=== PATIENT | female | born 1960 | race Caucasian/White ===

== ENCOUNTER 2016-12-27 14:46 | Outpatient (CLI) | payer OTHER ==
--- NOTE | 2016-12-27 17:57 | MMO ---
BILATERAL SCREENING MAMMOGRAMS: Comparison: Reference made to prior mammograms dating back to April 2012. This study is interpreted with the assistance of computer aided detection. FINDINGS: There are scattered fibroglandular elements bilaterally. No evidence of a new dominant mass, suspici ous clustering calcification or distortion. IMPRESSION: BIRADS category 1 - negative. Annual screening mammography recommended. POS: [place]
== END 2016-12-27 14:47 | disposition home or self-care (01) ==
LOC: MAMMO 14:46
DX: Z12.31 Encounter for screening mammogram for malignant neoplasm of breast (principal)
CPT/HCPCS: 77067; G0202

== ENCOUNTER 2018-04-14 08:12 | Outpatient (CLI) | payer BC | END 2018-04-14 08:13 | disposition home or self-care (01) | LOC: BICMAMMO 08:12 | PROVIDERS: ATTEND Family Medicine | DX: Z12.31 Encounter for screening mammogram for malignant neoplasm of breast (principal) | CPT/HCPCS: 77063; 77067 ==

== ENCOUNTER 2020-03-03 14:32 | Outpatient (CLI) | payer BC ==
--- NOTE | 2020-03-03 16:28 | MMO ---
Bilateral MAMMO Bilat Screen [facility]. CLINICAL HISTORY: Patient is 59 years old and is seen for screening. The patient has no family history of breast cancer. The patient has no personal history of cancer. VIEWS: The views performed were: bilateral craniocaudal with tomosynthesis and bilateral mediolateral oblique with tomosynthesis. FILMS COMPARED: The present examination has been compared to prior imaging studies performed at [facility] on 04/14/2018, and at [facility] on 07/20/2013, 07/16/2015 and 12/27/2016. This study has been interpreted with the assistance of computer-aided detection. MAMMOGRAM FINDINGS: There are scattered fibroglandular densities. There are no suspicious masses, suspicious calcifications, or new areas of architectural distortion. IMPRESSION: THERE IS NO MAMMOGRAPHIC EVIDENCE OF MALIGNANCY. A ROUTINE FOLLOW-UP MAMMOGRAM IN 1 YEAR IS RECOMMENDED. THE RESULTS OF THIS EXAM WERE SENT TO THE PATIENT. ACR BI-RADS Category 1 - Negative MAMMOGRAPHY NOTE: 1. A negative mammogram report should not delay a biopsy if a dominant of clinically suspicious mass is present. 2. Approximately 10% to 15% of breast cancers are not detected by mammography. 3. Adenosis and dense breasts may obscure an underlying neoplasm. Reported by: VALERIE LU MD Electonically Signed: [id number]
--- NOTE | 2020-03-04 07:28 | BD ---
EXAM: Bone densitometry using DEXA HISTORY: 59 yo female. Screening for postmenopausal osteoporosis FINDINGS: L1--bone mineral density 1.058 g/sq cm; T score 0.6 ; Z score 1.8 L2--bone mineral density 1.099 g/sq cm; T score 0.6 ; Z score 2.0 L3--bone mineral density 0.941 g/sq cm; T score -1.3 ; Z score 0.1 L4--bone mineral density 0.964 g/sq cm; T score -0.9 ; Z score 0.6 Total L1-L4--bone mineral density 1.010 g/sq cm; T score -0.3 ; Z score 1.0 Left femoral neck--bone mineral density0.690; T score -1.4 ; Z score -0.2 Total proximal left femur--bone mineral density 0.845; T score -0.8 ; Z score 0.1 The 10 year fracture risk for a major osteoporotic fracture is 7.5% and for a hip fracture is 0.6%. IMPRESSION: Osteopenia
== END 2020-03-03 14:33 | disposition home or self-care (01) ==
LOC: BICMAMMO 14:32
DX: Z12.31 Encounter for screening mammogram for malignant neoplasm of breast (principal); Z13.820 Encounter for screening for osteoporosis; E55.9 Vitamin D deficiency, unspecified; M85.89 Other specified disorders of bone density and structure, multiple sites
CPT/HCPCS: 77063; 77067; 77080

== ENCOUNTER 2020-03-11 07:01 | Outpatient (CLI) | payer BC ==
--- NOTE | 2020-03-11 07:40 | ULT ---
Renal sonogram HISTORY: Hematuria. FINDINGS: Right kidney measures up to 10.1 cm and the left kidney 10.8 cm. Each has a normal sonograp hic appearance without mass, stone, or hydronephrosis. Urinary bladder is unremarkable. IMPRESSION : No abnormalities are demonstrated.
== END 2020-03-11 07:02 | disposition home or self-care (01) ==
LOC: BICULT 07:01
DX: R31.29 Other microscopic hematuria (principal); I10 Essential (primary) hypertension
CPT/HCPCS: 76770

== ENCOUNTER 2020-04-04 17:39 | Emergency (ER) | payer BC ==
[2020-04-04] MEDS ORDERED: Oxymetazoline HCl 0.05% (30 ML BOT) ONE (18:16)
[2020-04-04 18:58] LABS: #Eosinphils 0.1 thou/uL (0.0-0.7); #Lymphocytes 1.8 thou/uL (1.20-3.40); #Monocytes 0.8 thou/uL (0.11-0.59); #Neutrophils 4.5 thou/uL (1.40-6.50); %Basophils 0.3 % (0.0-1.0); %Lymphocytes 24.6 % (21.0-51.0); %Monocytes 11.3 % (0.0-10.0); %Neutrophils 61.8 % (42.0-75.0); Hemoglobin 12.8 g/dL (12.0-16.0); Mean Corpuscular Hemoglobin 32.6 pg (27.0-31.0); Mean Corpuscular Volume 93.2 fL (78.0-98.0); Mean Platelet Volume 7.3 fL (7.4-10.4); Platelet Count 236 thou/uL (130-400); RBC Distribution Width 11.4 % (11.5-14.5); Red Blood Cell (RBC) Count 3.93 mill/uL (4.20-5.40); White Blood Cell (WBC) Count 7.2 thou/uL (4.8-10.8)
[2020-04-04 19:07] LABS: PTT 25.7 sec (22.9-36.1)
[2020-04-04 19:08] LABS: Prothrombin Time 13.7 sec (12.0-14.7)
== END 2020-04-04 20:07 ==
LOC: ERS 17:39
DX: R04.0 Epistaxis (principal)
CPT/HCPCS: 36415; 85610; 85730; 99283

== ENCOUNTER 2020-07-03 13:49 | Outpatient (CLI) | payer BC | END 2020-07-03 13:50 | disposition home or self-care (01) | PROVIDERS: ATTEND Neurological Surgery | DX: I69.191 Dysphagia following nontraumatic intracerebral hemorrhage (principal); R13.13 Dysphagia, pharyngeal phase; R63.3 Feeding difficulties; Z98.1 Arthrodesis status; Z98.890 Other specified postprocedural states | CPT/HCPCS: 74230 ==

== ENCOUNTER 2020-10-07 10:54 | Outpatient (CLI) | payer BC | END 2020-10-07 10:55 | disposition home or self-care (01) | PROVIDERS: ATTEND Neurological Surgery | DX: R13.13 Dysphagia, pharyngeal phase (principal); R63.3 Feeding difficulties | CPT/HCPCS: 74230 ==